=== PATIENT | male | born 1955 | race Caucasian/White ===

== ENCOUNTER 2016-09-21 08:11 | Emergency (ER) | payer OTHER ==
[2016-09-21] MEDS ORDERED: Sodium Chloride 0.9% 10 ML Syringe FLUSH PRN (08:22)
[2016-09-21] MEDS ORDERED: Ondansetron 4 MG/2 ML SDV IVPUSH ONE ×2 (08:22→10:12)
[2016-09-21] MEDS ORDERED: Meperidine PF 25 MG/ML Syringe IV ONE (08:23)
[2016-09-21] MEDS ORDERED: Sodium Chloride 0.9% 1,000 ML IV SCH (08:30)
[2016-09-21 08:48] VITALS: BP 130/77
[2016-09-21 09:27] LABS: CHLORIDE,CL 108 mmol/L (98-107); SODIUM,NA 143 mmol/L (136-145)
--- NOTE | 2016-09-21 09:58 | EDM.PDOC ---
ED HPI GI/ABDOMINAL - General Chief Complaint: Abdominal Pain Stated Complaint: abd pain Time Seen by Provider: 09/21/16 08:13 Source of Information: Reports: Patient, EMS notes reviewed, Family, RN, RN notes reviewed History Limitations: Reports: No limitations - History of Present Illness INITIAL COMMENTS - FREE TEXT/NARRATIVE: Patient presents to the ED at [facility] via EMS with acute onset of lower abdominal pain. Patient denies any diarrhea or vomiting, but has severe nausea. No previous abdominal injury or trauma. No previous abdominal surgeries. Patient states his pain is constant, sharp, stabbing. He feels most comfortable laying on his left side. Symptom Onset Date: 09/21/16 Timing/Duration: Reports: Constant, Getting worse Location: periumbilical Quality: Reports: stabbing, throbbing, radiating Severity: severe Improves with: Reports: lying down Worsens with: Reports: palpation, sitting up Context: Denies: sick contact, bad/questionable food, out of country travel, recent surgery, recent trauma, lifting Associated Symptoms: Reports: nausea/vomiting Treatments [employer]OR: Reports: See EMS Report - Related Data Allergies/ADRs: Allergies Allergy/AdvReac Type Severity Reaction Status Date / Time No Known Allergies Allergy Verified 09/21/16 08:22 Home Meds: Home Meds Hydrocodone/Acetaminophen [Hydrocodon-Acetaminophen 5-325] 1 each PO Q6HR PRN # 15 tablet 09/21/16 [Rx] Tamsulosin HCl [Flomax] 0.4 mg PO DAILY #7 cap.er.24h 09/21/16 [Rx] Past Medical History Cardiovascular History: Reports: High cholesterol - Past Surgical History Other Musculoskeletal Surgeries/Procedures:: right hip replacement; back fusion 2007 Social & Family History - Family History Family Medical History: Noncontributory - Tobacco Use Smoking Status *Q: Never Smoker Second Hand Smoke Exposure: No - Caffeine Use Caffeine Use: Reports: Coffee - Recreational Drug Use Recreational Drug Use: No ED ROS GENERAL - Review of Systems Review Of Systems: See Below Constitutional: Reports: chills. Denies: fever, weakness, decreased appetite Respiratory: Denies: Shortness of Breath, Cough Cardiovascular: Denies: Chest pain, Palpitations GI/Abdominal: Reports: Abdominal pain, Nausea. Denies: Black stool, Bloody stool, Diarrhea, Vomiting Skin: Reports: no symptoms Neurological: Reports: No Symptoms. Denies: Dizziness, Headache ED EXAM, GI/ABD - Physical Exam Exam: See Below Exam Limited By: No limitations General Appearance: alert, severe distress Respiratory/Chest: no respiratory distress, lungs clear, normal breath sounds Cardiovascular: regular rate, rhythm GI/Abdominal: hypoactive bowel sounds, tenderness, guarding, rigidity Back Exam: CVA tenderness (R) Neurological: alert, oriented Skin Exam: Warm, Dry, Intact, Normal color, No rash EKG INTERPRETATION EKG Date: 09/21/16 Time: 08:40 Rhythm: NSR Rate (beats/min): 62 [place]: normal P-wave: present QRS: normal ST-T: normal QT: normal ID/PQ Interval: 0.14 Comparison: NA - no prior EKG EKG Interpretation Comments: 1. Normal Sinus Rhythm Course - Vital Signs Last Recorded V/S: Last Vital Signs Temp 35.7 C 09/21/16 08:18 Pulse 65 09/21/16 08:47 Resp 18 09/21/16 08:47 BP 130/77 09/21/16 08:47 Pulse Ox 100 09/21/16 08:47 - Orders/Labs/Meds Orders: Active Orders 24 hr Category Date Time Status EKG 12 Lead [EKG Documentation Completion] [RC] STAT Care 09/21/16 08:23 Active Abdomen Pelvis w Cont [CT] Stat Exams 09/21/16 09:05 Taken Sodium Chloride 0.9% [Normal Saline] 1,000 ml Med 09/21/16 08:30 Active IV ASDIRECTED Sodium Chloride 0.9% [Saline Flush] Med 09/21/16 08:22 Active 10 ml FLUSH ASDIRECTED PRN Peripheral IV Insertion Adult [OM.PC] Routine Oth 09/21/16 08:22 Ordered Medication Orders Sodium Chloride (Normal Saline) 1,000 mls @ 999 mls/hr IV ASDIRECTED VERA Last Admin: 09/21/16 08:30 Dose: 999 mls/hr Sodium Chloride (Saline Flush) 10 ml FLUSH ASDIRECTED PRN PRN Reason: Keep Vein Open Last Admin: 09/21/16 08:31 Dose: 10 ml Labs: Laboratory Tests 09/21/16 09/21/16 09/21/16 Range/Units 08:40 08:40 08:40 WBC 3.3 L (4.0-10.0) x10^3/uL RBC 4.64 (4.5-6.0) x10^6/uL Hgb 14.5 (14.0-18.0) g/dL Hct 40.7 (40.0-52.0) % MCV 87.7 (78.0-93.0) fL MCH 31.3 (26.0-32.0) pg MCHC 35.6 (32.0-36.0) g/dL RDW Coeff of Ministerio 12.6 (10.0-15.0) % Plt Count 138 (130-400) x10^3/uL Neut % (Auto) 29.8 L (50.0-80.0) % Lymph % (Auto) 52.7 H (25.0-50.0) % [place] % (Auto) 13.9 H (2.0-11.0) % Eos % (Auto) 3.0 (0.0-4.0) % Baso % (Auto) 0.6 (0.2-1.2) % Sodium 143 (136-145) mmol/L Potassium 3.8 (3.5-5.1) mmol/L Chloride 108 H (98-107) mmol/L Carbon Dioxide 23 (21-32) mmol/L BUN 21 H (7-18) mg/dL Creatinine 1.0 (0.70-1.30) mg/dL Est Cr Clr Drug Dosing 91.00 mL/min Estimated GFR (MDRD) > 60 Glucose 142 H (74-106) mg/dL Lactic Acid 2.5 H (0.4-2.0) mmol/L Calcium 9.1 (8.5-10.1) mg/dL Corrected Calcium 9.02 (8.5-10.1) mg/dL Total Bilirubin 1.0 (0.2-1.0) mg/dL AST 34 (15-37) U/L ALT 58 (16-63) U/L Alkaline Phosphatase 69 (46-116) U/L Creatine Kinase 235 (39-308) U/L Creatine Kinase Index 1.0 (0.0-4.0) % CK-MB (CK-2) 2.3 (0.0-3.6) ng/mL POC Troponin I (0.00-0.08) ng/mL C-Reactive Protein < 0.2 (<=0.9) mg/dL Total Protein 6.9 (6.4-8.2) g/dL Albumin 4.1 (3.4-5.0) g/dL Globulin 2.8 Albumin/Globulin Ratio 1.46 Urine Color (YELLOW) Urine Appearance (CLEAR) Urine pH (5.0-8.0) Ur Specific [place] Urine Protein (NEGATIVE) mg/dL Urine Glucose (UA) (NEGATIVE) mg/dL Urine Ketones (NEGATIVE) mg/dL Urine Occult Blood (NEGATIVE) Urine Nitrite (NEGATIVE) Urine Bilirubin (NEGATIVE) Urine Urobilinogen (0.2) EU/dL Ur Leukocyte Esterase (NEGATIVE) Urine RBC (NOT SEEN) /HPF Urine WBC (NOT SEEN) /HPF Ur Squamous Epith Cells (NEGATIVE) /HPF Urine Bacteria (NEGATIVE) /HPF Urine Mucus (NEGATIVE) /LPF 09/21/16 09/21/16 Range/Units 08:51 10:00 WBC (4.0-10.0) x10^3/uL RBC (4.5-6.0) x10^6/uL Hgb (14.0-18.0) g/dL Hct (40.0-52.0) % MCV (78.0-93.0) fL MCH (26.0-32.0) pg MCHC (32.0-36.0) g/dL RDW Coeff of Ministerio (10.0-15.0) % Plt Count (130-400) x10^3/uL Neut % (Auto) (50.0-80.0) % Lymph % (Auto) (25.0-50.0) % [place] % (Auto) (2.0-11.0) % Eos % (Auto) (0.0-4.0) % Baso % (Auto) (0.2-1.2) % Sodium (136-145) mmol/L Potassium (3.5-5.1) mmol/L Chloride (98-107) mmol/L Carbon Dioxide (21-32) mmol/L BUN (7-18) mg/dL Creatinine (0.70-1.30) mg/dL Est Cr Clr Drug Dosing mL/min Estimated GFR (MDRD) Glucose (74-106) mg/dL Lactic Acid (0.4-2.0) mmol/L Calcium (8.5-10.1) mg/dL Corrected Calcium (8.5-10.1) mg/dL Total Bilirubin (0.2-1.0) mg/dL AST (15-37) U/L ALT (16-63) U/L Alkaline Phosphatase (46-116) U/L Creatine Kinase (39-308) U/L Creatine Kinase Index (0.0-4.0) % CK-MB (CK-2) (0.0-3.6) ng/mL POC Troponin I 0.02 (0.00-0.08) ng/mL C-Reactive Protein (<=0.9) mg/dL Total Protein (6.4-8.2) g/dL Albumin (3.4-5.0) g/dL Globulin Albumin/Globulin Ratio Urine Color Yellow (YELLOW) Urine Appearance Slightly cloudy H (CLEAR) Urine pH 8.5 H (5.0-8.0) Ur Specific [place] 1.020 Urine Protein Negative (NEGATIVE) mg/dL Urine Glucose (UA) Negative (NEGATIVE) mg/dL Urine Ketones Negative (NEGATIVE) mg/dL Urine Occult Blood Large H (NEGATIVE) Urine Nitrite Negative (NEGATIVE) Urine Bilirubin Negative (NEGATIVE) Urine Urobilinogen 0.2 (0.2) EU/dL Ur Leukocyte Esterase Negative (NEGATIVE) Urine RBC >100 H (NOT SEEN) /HPF Urine WBC Not seen (NOT SEEN) /HPF Ur Squamous Epith Cells Rare (NEGATIVE) /HPF Urine Bacteria Not seen (NEGATIVE) /HPF Urine Mucus Not seen (NEGATIVE) /LPF Meds: Medications Generic Name Dose Route Start Last Admin Trade Name Freq PRN Reason Stop Dose Admin Sodium Chloride 1,000 mls @ 999 mls/hr 09/21/16 08:30 09/21/16 08:30 Normal Saline IV 999 mls/hr ASDIRECTED VERA Administration Sodium Chloride 10 ml 09/21/16 08:22 09/21/16 08:31 Saline Flush FLUSH 10 ml ASDIRECTED PRN Administration Keep Vein Open Discontinued Medications Generic Name Dose Route Start Last Admin Trade Name Freq PRN Reason Stop Dose Admin Meperidine HCl 25 mg 09/21/16 08:23 09/21/16 08:30 Demerol IV 09/21/16 08:24 25 mg ONETIME ONE Administration Morphine Sulfate 2 mg 09/21/16 10:12 09/21/16 10:20 Morphine IVPUSH 09/21/16 10:13 2 mg ONETIME ONE Administration Ondansetron HCl 4 mg 09/21/16 08:22 09/21/16 08:30 Zofran IVPUSH 09/21/16 08:23 4 mg ONETIME ONE Administration Ondansetron HCl 4 mg 09/21/16 10:12 09/21/16 10:18 Zofran IVPUSH 09/21/16 10:13 4 mg ONETIME ONE Administration - Radiology Interpretation CT Results Date: 09/21/16 (CT scan read at 09:49 but not received on fax until 11:04) CT Results Time: 11:04 Departure - Departure Time of Disposition: 11:07 Disposition: Home, Self-Care 01 Condition: good Clinical Impression: Nephrolithiasis Prescriptions: Hydrocodone/Acetaminophen [Hydrocodon-Acetaminophen 5-325] 1 each PO Q6HR PRN # 15 tablet PRN Reason: Pain (Severe 7-10) Tamsulosin HCl [Flomax] 0.4 mg PO DAILY #7 cap.er.24h Instructions: Kidney Stones Referrals: PCP,Not In Area [Primary Care Provider] - Forms: ED Department Discharge Additional Instructions: 1. Stay well hydrated and rest 2. Drink lots of water to keep kidneys flushed 3. Take prescription medications as directed 4. See your Primary next week for a follow up - Problem List Review Problem List Initiated/Reviewed/Updated: Yes - My Orders Last 24 Hours: My Active Orders 09/21/16 08:22 Sodium Chloride 0.9% [Saline Flush] 10 ml FLUSH ASDIRECTED PRN Peripheral IV Insertion Adult [OM.PC] Routine 09/21/16 08:23 EKG 12 Lead [EKG Documentation Completion] [RC] STAT 09/21/16 08:30 Sodium Chloride 0.9% [Normal Saline] 1,000 ml IV ASDIRECTED 09/21/16 09:05 Abdomen Pelvis w Cont [CT] Stat - Assessment/Plan Last 24 Hours: My Active Orders 09/21/16 08:22 Sodium Chloride 0.9% [Saline Flush] 10 ml FLUSH ASDIRECTED PRN Peripheral IV Insertion Adult [OM.PC] Routine 09/21/16 08:23 EKG 12 Lead [EKG Documentation Completion] [RC] STAT 09/21/16 08:30 Sodium Chloride 0.9% [Normal Saline] 1,000 ml IV ASDIRECTED 09/21/16 09:05 Abdomen Pelvis w Cont [CT] Stat
[2016-09-21] MEDS ORDERED: Morphine 2 MG/ML Syringe IVPUSH ONE (10:12)
[2016-10-01] MEDS ORDERED: Iopamidol 612 MG/ML 100 ML Bottle IVPUSH ONE (19:56)
[2016-10-01] MEDS ORDERED: Sodium Chloride 0.9% 100 ML IV ONE (19:56)
== END 2016-09-21 11:32 | disposition home or self-care (01) ==
LOC: VM.ED 08:11
DX: N20.0 Calculus of kidney (principal); E78.00 Pure hypercholesterolemia, unspecified
CPT/HCPCS: 36415; 74177; 80053; 81001; 82550; 82553; 83605; 84484; 85025; 86140; 93005; 96361; 96374; 96375; 96376; 99284; J2175; J2270; J2405; J7030; J7050